=== PATIENT | female | born 1940 | race Caucasian/White ===

== ENCOUNTER → 2017-07-26 | Outpatient (CLI) | payer MEDICARE | END | disposition home or self-care (01) | LOC: KCIC DEXA 11:11 | PROVIDERS: ATTEND Family Medicine ==

== ENCOUNTER → 2017-07-31 | Outpatient (CLI) | payer MEDICARE ==
--- NOTE | 2017-07-31 14:45 | KCIC ---
Indication: Postmenopausal screening for osteoporosis. COMPARISON: None available.. Bone Density: -BMD: (g/cm2) - AP Spine Total (L1-L4).......... 1.011. - Total left Hip................. 0.547. T-Score: - AP Spine Total (L1-L4)......... -0.3. - Total left Hip................. -3.2. Z-Score: - AP Spine Total (L1-L4).......... 2.1. - Total left Hip................. -1.5. World Health Organization criteria for BMD interpretation classify patients as Normal (T-score at or above -1.0), Osteopenic (T-score between -1.0 and -2.5), or Osteoporotic (T-score at or below -2.5). Impression: 1. AP Spine Total L1-L4--- normal. 2. Total left Hip--- osteoporosis.. Electronically signed by: Matthew Eng MD (07/31/2017 2:42 PM) [place] [id number]
== END | disposition home or self-care (01) ==
LOC: KCIC DEXA 13:34
PROVIDERS: ATTEND Family Medicine
DX: Z13.820 Encounter for screening for osteoporosis (principal); M81.0 Age-related osteoporosis without current pathological fracture; Z78.0 Asymptomatic menopausal state
CPT/HCPCS: 77080

== ENCOUNTER → 2017-09-24 | Outpatient (CLI) | payer MEDICARE ==
--- NOTE | 2017-09-24 11:45 | RAD ---
APPROVED REPORT Patient Location: OUT-PATIENT Indications AAA Duplex Results A/PTransverseLongitudinal Proximal Aorta 3.1cm2.1cm Mid Aorta 2.2cm2.6cm Distal Aorta 3.4cm3.5cm Rt. Common Iliac Artery1.3cm Lt. Common Iliac Artery 1.4cm Findings Grayscale images of the abdominal aorta reveals mild diffuse atherosclerotic plaque. There is a 3.5 c m x 3.2 cm fusiform infrarenal aneurysm located at the distal aorta prior to the bifurcation with florecita roximately a 1.4 cm mural thrombus/plaque located on the posterior wall of the aorta prior to the bif urcation.. No obvious dissection is noted. Based on images from August 2016 there is mild enlargement of the aneurysm from 3.4 cm to 3.5 cm in greatest dimension. Critical Notification Critical Value: No <Conclusion> 1. Stable infra renal abdominal aortic aneurysm measuring 3.5 cm with mural thrombus present. Compare d to duplex scan from last year there is minimal increase in the diameter of the aneurysm from 3.4 cm to 3.5 cm.
== END | disposition home or self-care (01) ==
LOC: US 07:30
PROVIDERS: ATTEND Internal Medicine Cardiovascular Disease
DX: I71.4 Abdominal aortic aneurysm, without rupture (principal); I21.9 Acute myocardial infarction, unspecified
CPT/HCPCS: 76770

== ENCOUNTER → 2017-10-31 | Outpatient (CLI) | payer MEDICARE | END | disposition home or self-care (01) | LOC: KCIC 15:16 | DX: M17.0 Bilateral primary osteoarthritis of knee (principal); M25.762 Osteophyte, left knee; M25.761 Osteophyte, right knee; M25.862 Other specified joint disorders, left knee; M25.861 Other specified joint disorders, right knee | CPT/HCPCS: 73562 ==

== ENCOUNTER → 2018-06-18 | Outpatient (CLI) | payer MEDICARE ==
[2018-06-18 15:32] LABS: BASO # 0.1 x10^3/uL (0.0-0.2); BASO % 1 % (0-3); EOS # 0.1 x10^3/uL (0.0-0.7); EOS % 2 % (0-3); HEMATOCRIT 40.1 % (36.0-47.0); HEMOGLOBIN 13.2 g/dL (12.0-15.5); LYMPH # 2.2 x10^3/uL (1.0-4.8); LYMPH % 35 % (24-48); MEAN CORPUSCULAR HEMOGLOBIN 30 pg (25-35); MEAN CORPUSCULAR HGB CONC 33 g/dL (31-37); MEAN CORPUSCULAR VOLUME 90 fL (79-100); MONO # 0.8 x10^3/uL (0.0-1.1); MONO % 13 % (0-9); NEUT % 49 % (31-73); PLATELET COUNT 196 x10^3/uL (140-400); RED BLOOD COUNT 4.45 x10^6/uL (3.50-5.40); RED CELL DISTRIBUTION WIDTH 13.7 % (11.5-14.5); WHITE BLOOD COUNT 6.2 x10^3/uL (4.0-11.0)
[2018-06-18 15:50] LABS: ALBUMIN 3.9 g/dL (3.4-5.0); TOTAL PROTEIN 7.4 g/dL (6.4-8.2)
[2018-06-18 15:51] LABS: ALBUMIN/GLOBULIN RATIO 1.1 (1.0-1.7); CALCIUM 9.3 mg/dL (8.5-10.1); CREATININE 1.2 mg/dL (0.6-1.0); GFR 43.8; POTASSIUM 4.1 mmol/L (3.5-5.1)
== END | disposition home or self-care (01) ==
LOC: LAB 15:07
PROVIDERS: ATTEND Psychiatry & Neurology Neurology
DX: M81.0 Age-related osteoporosis without current pathological fracture (principal); R41.3 Other amnesia; I10 Essential (primary) hypertension
CPT/HCPCS: 36415; 80053; 82306; 82607; 84443; 85025

== ENCOUNTER → 2018-06-26 | Outpatient (CLI) | payer MEDICARE ==
--- NOTE | 2018-06-27 19:48 | EEG ---
DATE OF SERVICE: 06/26/2018 EEG NUMBER: [id number] OBJECTIVE: This is a 77-year-old female patient with history of memory loss and cognitive functional impairment. EEG was requested to evaluate cerebral activity. METHODS: Twenty electrodes were applied according to the international 10-20 electrode placement system. EKG monitoring, hyperventilation, intermittent photic stimulation, monopolar and bipolar montages were routinely utilized. The record was obtained on a digital system with video monitoring. FINDINGS: 1. Background: The patient was recorded in the awake and drowsy states. No actual sleep state was recorded. The overall background amplitude is 5-15 microvolts. A posterior dominant rhythm of 8 Hz is observed. 2. Abnormalities: No specific epileptiform discharge or electrographic seizure is seen. No focal or diffuse slowing. 3. Activation: Hyperventilation was performed with fair efforts and normal response. Intermittent photic stimulation was performed with photic driving. IMPRESSION: This EEG is a normal study for the awake and drowsy states. No actual sleep state was recorded. No focal, lateralizing, specific epileptiform discharge or electrographic seizure is seen. JESSICA ESPINOZA MD DR: SUBHA/maximo JOB#: [id number] / [id number] SHU
== END | disposition home or self-care (01) ==
LOC: RT 09:53
PROVIDERS: ATTEND Psychiatry & Neurology Neurology
DX: G31.84 Mild cognitive impairment of uncertain or unknown etiology (principal); M17.0 Bilateral primary osteoarthritis of knee; I10 Essential (primary) hypertension
CPT/HCPCS: 95816

== ENCOUNTER → 2018-09-09 | Outpatient (CLI) | payer MEDICARE ==
--- NOTE | 2018-09-09 10:46 | RAD ---
MR#: [id number] Date of Study: 09/09/2018 Ordering Physician: MOHIT LIZARRAGA, Referring Physician: MOHIT LIZARRAGA, Tech: Tristan Price MBA, RDMS, RVT, RDCS, RTR APPROVED REPORT Patient Location: OUT-PATIENT Indications AAA Duplex Results A/PTransverseLongitudinal Proximal Aorta 2.0cm1.7cm Mid Aorta 2.7cm1.9cm Distal Aorta 3.6cm3.5cm Doppler VelocityWaveform Distal Aorta 41.0 cm/sec Findings There is a infrarenal abdominal aortic aneurysm measuring approximately 3.67 m with a stable mural th rombus noted. These images are similar to ultrasound dated 09/17/17. The proximal aorta measures 2.0 cm in the mid aorta measures 2.7 cm. The distal infrarenal abdominal aorta measures 3.6 cm. Previous measurements were notable for transverse dimensions of 2.0, 2.6, 3.5. Critical Notification Critical Value: No <Conclusion> Minimally increased infrarenal abdominal aorta is aneurysm at 3.6 cm with known mural thrombus. Signed by : Jude Mullins, Electronically Approved : 09/09/2018 10:45:43
--- NOTE | 2018-09-09 11:23 | CARD ---
MR#: [id number] Date of Study: 09/09/2018 Ordering Physician: MOHIT LIZARRAGA, Referring Physician: MOHIT LIZARRAGA Tech: Antonieta Rodriguez RDCS APPROVED REPORT EXAM: Two-dimensional and M-mode echocardiogram with Doppler and color Doppler. Other Information Quality : GoodHR: 61bpm Rhythm : NSR INDICATION Hypertension/HCVD 2D DIMENSIONS RVDd2.9 (2.9-3.5cm)Left Atrium(2D)3.4 (1.6-4.0cm) IVSd1.7 (0.7-1.1cm)Aortic Root(2D)3.6 (2.0-3.7cm) LVDd3.6 (3.9-5.9cm)LVOT Diameter1.7 (1.8-2.4cm) PWd0.8 (0.7-1.1cm)IVSs1.8 (0.8-1.2cm) LVDs2.1 (2.5-4.0cm)FS (%) 40.5 % PWs1.1 (0.8-1.2cm)SV38.7 ml M-Mode DIMENSIONS Left Atrium(MM)3.45 (2.5-4.0cm)Aortic Root3.64 (2.2-3.7cm) Aortic Valve AoV Peak Isai.152.5cm/sAoV VTI39.4cm AO Peak GR.9.3mmHgLVOT Peak Isai.142.8cm/s LVOT VTI 37.63cmAO Mean GR.6mmHg BO (VMAX)1.68vg3QYS (VTI)2.26cm2 Mitral Valve MV E Momlxewu351.4cm/sMV DECEL INQF118yc MV A Fsimmtat728.2cm/sMV NDW00ds E/A Ratio0.9MVA (PHT)2.26cm2 TDI E/Lateral E'19.9E/Medial E'21.8 Pulmonary Valve PV Peak Iycaozub08.6cm/sPV Peak Grad.4mmHg Tricuspid Valve TR P. Mrvmwrho129ow/sRAP HQPZLYFV6dgGa TR Peak Gr.76daUeVZRF27qzKu Pulmonary Vein S1 Yzybxykq76.2cm/sD2 Mfejdigz65.7cm/s PVa lrfjmgeh781aoao LEFT VENTRICLE The left ventricle is normal size. There is mild to moderate left ventricular hypertrophy. There is m oderate proximal thickening. The left ventricular systolic function is normal and the ejection fracti on is within normal range. The Ejection Fraction is 60-65%. There is normal LV segmental wall motion. Transmitral Doppler flow pattern is Grade II-pseudonormal filling dynamics. RIGHT VENTRICLE The right ventricle is normal size. There is normal right ventricular wall thickness. The right ventr icular systolic function is normal. ATRIA The left atrium size is normal. The right atrium size is normal. The interatrial septum is intact wit h no evidence for an atrial septal defect or patent foramen ovale as noted on 2-D or Doppler imaging. AORTIC VALVE The aortic valve is moderately calcified. The aortic valve is trileaflet. Doppler and Color Flow reve aled no significant aortic regurgitation. There is no significant aortic valvular stenosis. MITRAL VALVE The mitral valve is calcified but opens well. There is no evidence of mitral valve prolapse. There is no mitral valve stenosis. Doppler and Color-flow revealed mild mitral regurgitation. TRICUSPID VALVE The tricuspid valve is normal in structure and function. Doppler and Color Flow revealed mild to mode rate tricuspid regurgitation. The PA pressure was estimated at 32 mmHg. There is no tricuspid valve p rolapse or vegetation. There is no tricuspid valve stenosis. PULMONIC VALVE The pulmonary valve is normal in structure and function. Doppler and Color Flow revealed moderate pul hafsa valvular regurgitation. There is no pulmonic valvular stenosis. GREAT VESSELS The aortic root is mildly enlarged. The ascending aorta is mildly dilated. PERICARDIAL EFFUSION There is no evidence of significant pericardial effusion. Critical Notification Critical Value: No <Conclusion> The left ventricle is normal size. The left ventricular systolic function is normal and the ejection fraction is within normal range. The Ejection Fraction is 60-65%. There is mild to moderate left ventricular hypertrophy. There is moderate proximal thickening. There is no significant aortic valvular stenosis. Doppler and Color Flow revealed no significant aortic regurgitation. Doppler and Color-flow revealed mild mitral regurgitation. Doppler and Color Flow revealed mild to moderate tricuspid regurgitation. The PA pressure was estimated at 32 mmHg. Signed by : Ron Vergara MD Electronically Approved : 09/09/2018 11:22:53
== END | disposition home or self-care (01) ==
LOC: US 11:50
PROVIDERS: ATTEND Internal Medicine Cardiovascular Disease
DX: I71.4 Abdominal aortic aneurysm, without rupture (principal); I08.8 Other rheumatic multiple valve diseases
CPT/HCPCS: 76770; 93306

== ENCOUNTER → 2018-12-19 | Outpatient (CLI) | payer MEDICARE ==
--- NOTE | 2018-12-19 11:17 | KCIC ---
MRI of the brain without contrast 12/19/2018 Clinical History: Memory loss Technique: Unenhanced T1-weighted sagittal and axial, T2-weighted axial and coronal and FLAIR, gradient echo and diffusion-weighted axial images of the brain were obtained. Findings: No previous imaging studies are available for comparison. There is generalized parenchymal atrophy. Patchy and a small scattered areas of increased signal intensity are seen within the periventricular and subcortical white matter of both cerebral hemispheres on the FLAIR and T2-weighted images consistent with areas of mild small vessel ischemic disease. No acute parenchymal abnormality is seen. No extra-axial fluid collection is seen. There is no MRI evidence of acute ischemia/infarction. Mild to moderate mucosal thickening in seen scattered throughout the paranasal sinuses. There is a minimal left mastoid effusion. Small to moderate-sized right mastoid effusion is seen. Normal flow voids are seen within the major vascular structures surrounding the brain parenchyma. Impression: No acute parenchymal abnormality is seen. Electronically signed by: Shaji Barr MD (12/19/2018 11:14 AM) [facility]
== END | disposition home or self-care (01) ==
LOC: KCIC MRI 09:59
PROVIDERS: ATTEND Psychiatry & Neurology Neurology
DX: H74.8X3 Other specified disorders of middle ear and mastoid, bilateral (principal); G31.89 Other specified degenerative diseases of nervous system
CPT/HCPCS: 70551

== ENCOUNTER → 2019-09-12 | Outpatient (CLI) | payer MEDICARE ==
--- NOTE | 2019-09-12 10:56 | CARD ---
MR#: [id number] Date of Study: 09/12/2019 Ordering Physician: MOHIT WASHINGTON, Referring Physician: MOHIT WASHINGTON, Tech: Inés Avelar APPROVED REPORT EXAM: Two-dimensional and M-mode echocardiogram with Doppler and color Doppler. INDICATION Hypertension/HCVD 2D DIMENSIONS Left Atrium(2D)2.8 (1.6-4.0cm)IVSd1.1 (0.7-1.1cm) Aortic Root(2D)3.5 (2.0-3.7cm)LVDd4.0 (3.9-5.9cm) LVOT Diameter2.0 (1.8-2.4cm)PWd0.9 (0.7-1.1cm) LVDs3.0 (2.5-4.0cm)FS (%) 25.8 % SV35.5 mlLVEF(%)51.3 (>50%) Aortic Valve AoV Peak Isai.167.9cm/sAoV VTI40.7cm AO Peak GR.11.3mmHgLVOT Peak Isai.143.5cm/s LVOT VTI 36.65cmAO Mean GR.7mmHg BO (VMAX)2.61xh2NUN (VTI)2.84cm2 Mitral Valve MV E Dbgjxioj93.8cm/sMV DECEL YEEF452qx MV A Augjpsts453.2cm/sMV HRE158ym E/A Ratio0.8MVA (PHT)2.13cm2 TDI E/Lateral E'19.2E/Medial E'29.3 Pulmonary Valve PV Peak Egzkvmwc72.8cm/sPV Peak Grad.4mmHg Tricuspid Valve TR P. Hzxccxvc514dv/sRAP KBKCIBJB0nyGt TR Peak Gr.42diArXMRQ24nzQq Pulmonary Vein S1 Cideylaj26.1cm/sD2 Jjuwjazg33.8cm/s PVa vislpaqc820fkdw LEFT VENTRICLE The left ventricle is normal size. There is borderline to mild concentric left ventricular hypertroph y. The left ventricular systolic function is normal. The Ejection Fraction is 60-65%. There is normal LV segmental wall motion. Transmitral Doppler flow pattern is Grade I-abnormal relaxation pattern. RIGHT VENTRICLE The right ventricle is normal size. There is normal right ventricular wall thickness. The right ventr icular systolic function is normal. ATRIA The left atrium is borderline dilated. The right atrium size is normal. The interatrial septum is int act with no evidence for an atrial septal defect or patent foramen ovale as noted on 2-D or Doppler i maging. AORTIC VALVE The aortic valve is normal in structure and function. Doppler and Color Flow revealed no significant aortic regurgitation. There is no significant aortic valvular stenosis. MITRAL VALVE Mitral annular calcification is mild to moderate. There is no evidence of mitral valve prolapse. Ther e is no mitral valve stenosis. Doppler and Color-flow revealed trace mitral regurgitation. TRICUSPID VALVE The tricuspid valve is normal in structure and function. Doppler and Color Flow revealed mild tricusp id regurgitation with an estimated PAP of 40 mmHg. There is no tricuspid valve prolapse or vegetation . There is no tricuspid valve stenosis. PULMONIC VALVE The pulmonic valve is not well visualized. Doppler and Color Flow revealed mild to moderate pulmonic valvular regurgitation. GREAT VESSELS The aortic root is mildly enlarged. The IVC is normal in size and collapses >50% with inspiration. PERICARDIAL EFFUSION There is no evidence of significant pericardial effusion. Critical Notification Critical Value: No <Conclusion> The left ventricular systolic function is normal. The Ejection Fraction is 60-65%. There is normal LV segmental wall motion. Transmitral Doppler flow pattern is Grade I-abnormal relaxation pattern. Trace mitral regurgitation. Mild tricuspid regurgitation with an estimated PAP of 40 mmHg. There is no evidence of significant pericardial effusion. Signed by : Mohit Washington, Electronically Approved : 09/12/2019 10:56:26
--- NOTE | 2019-09-15 07:43 | RAD ---
MR#: [id number] Date of Study: 09/12/2019 Ordering Physician: MOHIT LIZARRAGA, Referring Physician: MOHIT LIZARRAGA Tech: Inés Allen RDMS, JASVIR, RTR APPROVED REPORT Patient Location: OUT-PATIENT Indications AAA Duplex Results A/PTransverseLongitudinal Proximal Aorta 2.5cm2.3cm2cm Mid Aorta 2.3cm2.4cm2.2cm Distal Aorta 3.4cm2.9cm3cm Rt. Common Iliac Artery1.1cm Lt. Common Iliac Artery 1.3cm Doppler VelocityWaveform Proximal Aorta 46.9 cm/secBiphasic Aorta Mid. 58.1 cm/secBiphasic Distal Aorta 41.4 cm/secBiphasic Rt. Common Iliac Rjbibe199.2 cm/secMonophasic Lt. Common Iliac Artery 223.6 cm/secMonophasic Findings Grayscale images of the abdominal aorta demonstrates mild diffuse intimal hyperplasia. The distal abd ominal aorta has an aneurysm measuring approximately 3.5 cm with a 50% obstructive plaque without sig nificant calcification suggestive of soft plaque. The bilateral common iliac velocities are elevated again suggestive of greater than 50% stenosis at t he aortic bifurcation. Critical Notification Critical Value: No <Conclusion> 1. Small distal abdominal aortic aneurysm with 50% noncalcified plaque noted 2. 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 Signed by : Jude Mullins, Electronically Approved : 09/15/2019 07:42:51
== END | disposition home or self-care (01) ==
LOC: ECHO 08:19
PROVIDERS: ATTEND Internal Medicine Cardiovascular Disease
DX: I08.8 Other rheumatic multiple valve diseases (principal); I11.9 Hypertensive heart disease without heart failure
CPT/HCPCS: 76770; 93306

== ENCOUNTER 2020-04-13 00:35 | Inpatient (IN) | payer MEDICARE ==
[2020-04-13] VITALS (11 sets, daily range): BP systolic 111–188; BP diastolic 46–83
[~2020-04-13] VITALS: Ht 160 cm; Wt 74.8 kg
--- NOTE | 2020-04-13 01:01 | RAD ---
EXAM: LEFT WRIST 3 VIEWS. HISTORY: Fall, left wrist pain. COMPARISON: None. FINDINGS: There is a mildly comminuted transverse fracture of the distal radial metaphysis with 30 degrees dorsal inclination of the distal radial articular surface. No clear intra-articular extension is seen. There is no ulnar styloid fracture. The scapholunate interval is not fully profiled but appears widened at 4 mm. The scapholunate angle is increased. First carpometacarpal osteoarthritis is severe. 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 Soft tissue swelling is noted. IMPRESSION: 1. Dorsally angulated fracture of the distal radius. 2. Findings consistent with scapholunate ligament disruption and dorsal intercalated segmental instability. Electronically signed by: Aren Lo MD (04/13/2020 12:58 AM) [facility]
--- NOTE | 2020-04-13 01:08 | PHYS DOC ---
Past Medical History Past Medical History: High Cholesterol, Hypertension Past Surgical History: Tonsillectomy Smoking Status: Never Smoker Alcohol Use: None General Adult EDM: Chief Complaint: MECHANICAL FALL HPI: HPI: Patient is a 79 year old female who presents with complaint of left wrist injury after falling at home. Patient indicates that she went to kick a ball that her dog was playing with and she slipped and fell backwards landing on outstretched left hand. Patient reports pain is an 6 out of 10. [] Review of Systems: Review of Systems: Constitutional: Denies fever or chills. [] Eyes: Denies change in visual acuity. [] HENT: Denies nasal congestion or sore throat. [] Respiratory: Denies cough or shortness of breath. [] Cardiovascular: Denies chest pain or edema. [] GI: Denies abdominal pain, nausea, vomiting, bloody stools or diarrhea. [] : Denies dysuria. [] Musculoskeletal: Denies back pain or joint pain. [] Integument: Denies rash. [] Neurologic: Denies headache, focal weakness or sensory changes. [] Endocrine: Denies polyuria or polydipsia. [] Lymphatic: Denies swollen glands. [] Psychiatric: Denies depression or anxiety. [] Heart Score: Risk Factors: Risk Factors: DM, Current or recent (<one month) smoker, HTN, HLP, family history of CAD, obesity. Risk Scores: Score 0 - 3: 2.5% MACE over next 6 weeks - Discharge Home Score 4 - 6: 20.3% MACE over next 6 weeks - Admit for Clinical Observation Score 7 - 10: 72.7% MACE over next 6 weeks - Early Invasive Strategies Allergies: Allergies: Allergies Coded Allergies Type Severity Reaction Last Updated Verified No Known Drug Allergies 04/13/20 No Physical Exam: PE: Constitutional: Well developed, well nourished, no acute distress, non-toxic appearance. [] HENT: Normocephalic, atraumatic, bilateral external ears normal, oropharynx moist, no oral exudates, nose normal. [] Eyes: PERRLA, EOMI, conjunctiva normal, no discharge. [] Neck: Normal range of motion, no tenderness, supple, no stridor. [] Cardiovascular:Heart rate regular rhythm, no murmur [] Lungs & Thorax: Bilateral breath sounds clear to auscultation [] Abdomen: Bowel sounds normal, soft, no tenderness, no masses, no pulsatile masses. [] Skin: Warm, dry, no erythema, no rash. [] Back: No tenderness, no CVA tenderness. [] Extremities: No tenderness, no cyanosis, no clubbing, ROM intact, no edema. [] Neurologic: Alert and oriented X 3, normal motor function, normal sensory function, no focal deficits noted. [] Psychologic: Affect normal, judgement normal, mood normal. [] Current Patient Data: Vital Signs: Vital Signs Date Time Temp Pulse Resp B/P (MAP) Pulse Ox O2 Delivery O2 Flow Rate FiO2 04/13/20 00:43 98.6 67 19 198/91 (126) 94 Room Air 98.6 EKG: EKG: [] Radiology/Procedures: Radiology/Procedures: [] Impression: PROCEDURE: WRIST 3V LEFT EXAM: LEFT WRIST 3 VIEWS. HISTORY: Fall, left wrist pain. COMPARISON: None. FINDINGS: There is a mildly comminuted transverse fracture of the distal radial metaphysis with 30 degrees dorsal inclination of the distal radial articular surface. No clear intra-articular extension is seen. There is no ulnar styloid fracture. The scapholunate interval is not fully profiled but appears widened at 4 mm. The scapholunate angle is increased. First carpometacarpal osteoarthritis is severe. 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 Soft tissue swelling is noted. IMPRESSION: 1. Dorsally angulated fracture of the distal radius. 2. Findings consistent with scapholunate ligament disruption and dorsal intercalated segmental instability. Electronically signed by: Aren Lo MD (04/13/2020 12:58 AM) [facility] Course & Med Decision Making: Course & Med Decision Making Pertinent Labs and Imaging studies reviewed. (See chart for details) [] Dragon Disclaimer: Dragon Disclaimer: This electronic medical record was generated, in whole or in part, using a voice recognition dictation system. Departure Departure Impression: Primary Impression: Wrist fracture, left Qualified Codes: S62.102A - Fracture of unspecified carpal bone, left wrist, initial encounter for closed fracture Additional Impression: Intractable pain Disposition: ADMITTED INPATIENT Admitting Physician: [facility] Condition: IMPROVED Referrals: DI LEAL MD (PCP) Justicifation of Admission Dx: Justifications for Admission: Justification of Admission Dx: Comment: (Left wrist fracture with intractable pain) STONE MICHAEL Jr. DO Apr 13, 2020 01:08
[2020-04-13] MEDS ORDERED: fentaNYL PF VIAL 100 MCG/2 ML VIAL IVP ONE ×2 (01:30→02:00)
[2020-04-13] MEDS ORDERED: ONDANSETRON PF 4 MG/2 ML VIAL. IVP ONE (01:30)
[2020-04-13 02:26] LABS: BASO # 0.1 x10^3/uL (0.0-0.2); BASO % 1 % (0-3); EOS % 1 % (0-3); HEMOGLOBIN 13.1 g/dL (12.0-15.5); LYMPH % 10 % (24-48); MEAN CORPUSCULAR HEMOGLOBIN 30 pg (25-35); MEAN CORPUSCULAR HGB CONC 34 g/dL (31-37); MEAN CORPUSCULAR VOLUME 90 fL (79-100); MONO % 11 % (0-9); NEUT # 7.9 x10^3/uL (1.8-7.7); NEUT % 78 % (31-73); PLATELET COUNT 171 x10^3/uL (140-400); RED BLOOD COUNT 4.34 x10^6/uL (3.50-5.40); RED CELL DISTRIBUTION WIDTH 13.9 % (11.5-14.5)
[2020-04-13 02:34] LABS: CALCIUM 9.6 mg/dL (8.5-10.1); CREATININE 1.4 mg/dL (0.6-1.0); GFR 36.5; POTASSIUM 3.4 mmol/L (3.5-5.1)
[2020-04-13 02:40] LABS: ALBUMIN 3.7 g/dL (3.4-5.0); ALBUMIN/GLOBULIN RATIO 1.2 (1.0-1.7); TOTAL BILIRUBIN 0.8 mg/dL (0.2-1.0); TOTAL PROTEIN 6.9 g/dL (6.4-8.2)
[2020-04-13] MEDS ORDERED: ONDANSETRON PF 4 MG/2 ML VIAL. IV PRN ×2 (03:00→13:45)
[2020-04-13] MEDS: IV NORMAL SALINE 1000ML BAG 1,000 ML IV SCH ×4 (03:03→22:45)
[2020-04-13] MEDS ORDERED: HYDR-2145 PO (04:01)
[2020-04-13] MEDS ORDERED: DONE10TA7 PO (04:01)
[2020-04-13] MEDS ORDERED: ALEN70TA6 PO (04:01)
[2020-04-13] MEDS ORDERED: ATOR40TA59 PO (04:01)
[2020-04-13] MEDS ORDERED: METO-239 PO (04:01)
[2020-04-13] MEDS ORDERED: LOSA100T14 PO (04:01)
--- NOTE | 2020-04-13 04:03 | NUR ---
The patient, ZIA MELARA, 79 y/o, F admitted by FORTUNATO TOLBERT MD, was given written information regarding hospital policies, unit procedures and contact persons. Valuables were checked and left with her.
--- NOTE | 2020-04-13 07:10 | EKG ---
[facility] [address] [place] [address] Test Date: 2020-04-13 Test Time: 00:57:29 Pat Name: ZIA MELARA Department: Room: 412 1 Gender: F [employer] Cuisine: : 1940 Requested By: FORTUNATO TOLBERT Order Number: [id number] Reading MD: Jude Mullins MD Measurements Intervals [place] Rate: 63 P: 9 OK: 172 QRS: -2 QRSD: 74 T: 41 QT: 394 QTc: 406 Interpretive Statements SINUS RHYTHM CONSISTENT WITH ANTEROSEPTAL INFARCT PROBABLY OLD ABNORMAL ECG Electronically Signed On 04-13-2020 9:49:47 CDT by Jude Mullins MD
--- NOTE | 2020-04-13 07:52 | NUR ---
Covid swab taken & taken to lab
--- NOTE | 2020-04-13 07:55 | NUR ---
Family members at bedside, notified of impending surgery, given clear liquid diet per MD order
[2020-04-13] MEDS: fentaNYL PF VIAL 100 MCG/2 ML VIAL IV PRN ×4 (08:35→19:06)
--- NOTE | 2020-04-13 09:30 | PDOC1 ---
History and Physical Date of Admission Date of Admission DATE: 04/13/20 TIME: 09:27 Identification/Chief Complaint Chief Complaint SEEN IN ER WITH SEVERE PAIN AFTER WRIST [id number] year old female who presents with complaint of left wrist injury after falling at home. Patient indicates that she went to kick a ball that her dog was playing with and she slipped and fell backwards landing on outstretched left hand. Patient reports pain is an 6 out of 10. [] NOW IN SPLINT, ELEVATED, PAIN NOT WELL CONTROLLED Past Medical History Past Medical History Past Medical History Past Medical History: High Cholesterol, Hypertension Past Surgical History: Tonsillectomy Smoking Status: Never Smoker Alcohol Use: None fhx HTN Cardiovascular: HTN Family History Family History: High Cholestrol, Hypertension Social History Smoke: No ALCOHOL: none Drugs: None Current Problem List Problem List Problems Medical Problems: (1) Wrist fracture, left Status: Acute Current Medications Current Medications Current Medications Fentanyl Citrate (Fentanyl 2ml Vial) 50 mcg 1X ONCE IVP Last administered on 04/13/20at 01:23; Start 04/13/20 at 01:30; Stop 04/13/20 at 01:31; Status DC Ondansetron HCl (Zofran) 4 mg 1X ONCE IVP Last administered on 04/13/20at 01:31; Start 04/13/20 at 01:30; Stop 04/13/20 at 01:31; Status DC Fentanyl Citrate (Fentanyl 2ml Vial) 50 mcg 1X ONCE IVP Last administered on 04/13/20at 01:53; Start 04/13/20 at 02:00; Stop 04/13/20 at 02:01; Status DC Ondansetron HCl (Zofran) 4 mg PRN Q8HRS PRN IV NAUSEA/VOMITING; Start 04/13/20 at 03:00; Stop 04/14/20 at 02:59 Fentanyl Citrate (Fentanyl 2ml Vial) 25 mcg PRN Q1HR PRN IV PAIN Last administered on 04/13/20at 08:35; Start 04/13/20 at 03:00; Stop 04/14/20 at 02:59 Sodium Chloride 1,000 ml @ 75 mls/hr [id number] IV Last administered on 04/13/20at 03:03; Start 04/13/20 at 03:00; Stop 04/14/20 at 02:59 Active Scripts Active Reported Alendronate Sodium 70 Mg Tablet 70 Mg PO WEEKLY Losartan Potassium 100 Mg Tablet 100 Mg PO DAILY Atorvastatin Calcium 40 Mg Tablet 40 Mg PO HS Donepezil Hcl 10 Mg Tablet 20 Mg PO HS Metoprolol Succinate ( Xl ) (Metoprolol Succinate) 25 Mg Tab.er.24h 50 Mg PO DAILY Hydrochlorothiazide Tablet (Hydrochlorothiazide) 25 Mg Tablet 25 Mg PO DAILY Allergies Allergies: Coded Allergies: No Known Drug Allergies (Unverified , 04/13/20) ROS Review of System Review of Systems: Review of Systems: Constitutional: Denies fever or chills. [] Eyes: Denies change in visual acuity. [] HENT: Denies nasal congestion or sore throat. [] Respiratory: Denies cough or shortness of breath. [] Cardiovascular: Denies chest pain or edema. [] GI: Denies abdominal pain, nausea, vomiting, bloody stools or diarrhea. [] : Denies dysuria. [] Musculoskeletal: Denies back pain or joint pain. [] Integument: Denies rash. [] Neurologic: Denies headache, focal weakness or sensory changes. [] Endocrine: Denies polyuria or polydipsia. [] Lymphatic: Denies swollen glands. [] Psychiatric: Denies depression or anxiety. [] 14 PT ROS OTHERWISE NEG PSYCHOLOGICAL ROS: YES: Anxiety; No: Behavioral Disorder, Concentration difficultie, Decreased libido, Depression, Disorientation, Hallucinations, Hostility, Irritablity, Memory difficulties, Mood Swings, Obsessive thoughts, Physical abuse, Sexual abuse, Sleep disturbances, Suicidal ideation, Other Eyes: No Blurry vision, No Decreased vision, No Double vision, No Dry eyes, No Excessive tearing, No Eye Pain, No Itchy Eyes, No Loss of vision, No Photophobia, No Scotomata, No Uses contacts, No Uses glasses, No Other ALLERGY AND IMMUNOLOGY: No: Hives, Insect Bite Sensitivity, Itchy/Watery Eyes, Nasal Congestion, Post Nasal Drip, Seasonal Allergies, Other Hematological and Lymphatic: No: Bleeding Problems, Blood Clots, Blood Transfusions, Brusing, Night Sweats, Pallor, Swollen Lymph Nodes, Other Respiratory: No: Cough, Hemoptysis, Orthopnea, Pleuritic Pain, Shortness of breath, SOB with excertion, Sputum Changes, Stridor, Tachypnea, Wheezing, Other Cardiovascular: No Chest Pain, No Palpitations, No Orthopnea, No Paroxysmal Noc. Dyspnea, No Edema, No Lt Headedness, No Other Gastrointestinal: No Nausea, No Vomiting, No Abdominal Pain, No Diarrhea, No Constipation, No Melena, No Hematochezia, No Other Musculoskeletal: Yes Gait Disturbance, Yes Joint Pain, Yes Joint Stiffness, Yes Joint Swelling Neurological: Yes Gait Disturbance Physical Exam Physical Exam Physical Exam: PE: Constitutional: Well developed, well nourished, MODERATE acute distress, non- toxic appearance. [] HENT: Normocephalic, atraumatic, bilateral external ears normal, oropharynx moist, no oral exudates, nose normal. [] Eyes: PERRLA, EOMI, conjunctiva normal, no discharge. [] Neck: Normal range of motion, no tenderness, supple, no stridor. [] Cardiovascular:Heart rate regular rhythm, no murmur [] Lungs & Thorax: Bilateral breath sounds clear to auscultation [] Abdomen: Bowel sounds normal, soft, no tenderness, no masses, no pulsatile masses. [] Skin: Warm, dry, no erythema, no rash. [] Back: No tenderness, no CVA tenderness. [] Extremities: No tenderness, no cyanosis, no clubbing, ROM intact, no edema. [] Neurologic: Alert and oriented X 3, normal motor function, normal sensory function, no focal deficits noted. [] Psychologic: Affect normal, judgement normal, mood normal. [] General: Alert, Oriented X3, Cooperative, moderate distress HEENT: Atraumatic, PERRLA, EOMI, Mucous membr. moist/pink Lungs: Clear to auscultation, Normal air movement Heart: RRR, no thrills, no gallops Breasts: Not examined Abdomen: Normal bowel sounds, Soft Rectal Exam: not examined PELVIC: Examination not indicated Extremities: No cyanosis, No edema Neuro: Normal speech, Cranial nerves 3-12 NL Psych/Mental Status: Mental status NL, Mood NL Vitals Vitals Vital Signs Date Time Temp Pulse Resp B/P (MAP) Pulse Ox O2 Delivery O2 Flow Rate FiO2 04/13/20 08:35 Room Air 04/13/20 07:15 98.0 97 18 168/78 (108) 95 98.0 Labs Labs Laboratory Tests Test 6/16/20 02:15 White Blood Count 10.0 x10^3/uL (4.0-11.0) Red Blood Count 4.34 x10^6/uL (3.50-5.40) Hemoglobin 13.1 g/dL (12.0-15.5) Hematocrit 39.0 % (36.0-47.0) Mean Corpuscular Volume 90 fL (79-100) Mean Corpuscular Hemoglobin 30 pg (25-35) Mean Corpuscular Hemoglobin Concent 34 g/dL (31-37) Red Cell Distribution Width 13.9 % (11.5-14.5) Platelet Count 171 x10^3/uL (140-400) Neutrophils (%) (Auto) 78 % (31-73) Lymphocytes (%) (Auto) 10 % (24-48) Monocytes (%) (Auto) 11 % (0-9) Eosinophils (%) (Auto) 1 % (0-3) Basophils (%) (Auto) 1 % (0-3) Neutrophils # (Auto) 7.9 x10^3/uL (1.8-7.7) Lymphocytes # (Auto) 1.0 x10^3/uL (1.0-4.8) Monocytes # (Auto) 1.0 x10^3/uL (0.0-1.1) Eosinophils # (Auto) 0.0 x10^3/uL (0.0-0.7) Basophils # (Auto) 0.1 x10^3/uL (0.0-0.2) Sodium Level 141 mmol/L (136-145) Potassium Level 3.4 mmol/L (3.5-5.1) Chloride Level 102 mmol/L (98-107) Carbon Dioxide Level 28 mmol/L (21-32) Anion Gap 11 (6-14) Blood Urea Nitrogen 28 mg/dL (7-20) Creatinine 1.4 mg/dL (0.6-1.0) Estimated GFR (Cockcroft-Gault) 36.5 BUN/Creatinine Ratio 20 (6-20) Glucose Level 101 mg/dL (70-99) Calcium Level 9.6 mg/dL (8.5-10.1) Total Bilirubin 0.8 mg/dL (0.2-1.0) Aspartate Amino Transf (AST/SGOT) 23 U/L (15-37) Alanine Aminotransferase (ALT/SGPT) 19 U/L (14-59) Alkaline Phosphatase 54 U/L (46-116) Total Protein 6.9 g/dL (6.4-8.2) Albumin 3.7 g/dL (3.4-5.0) Albumin/Globulin Ratio 1.2 (1.0-1.7) Laboratory Tests Test 04/13/20 02:15 White Blood Count 10.0 x10^3/uL (4.0-11.0) Red Blood Count 4.34 x10^6/uL (3.50-5.40) Hemoglobin 13.1 g/dL (12.0-15.5) Hematocrit 39.0 % (36.0-47.0) Mean Corpuscular Volume 90 fL (79-100) Mean Corpuscular Hemoglobin 30 pg (25-35) Mean Corpuscular Hemoglobin Concent 34 g/dL (31-37) Red Cell Distribution Width 13.9 % (11.5-14.5) Platelet Count 171 x10^3/uL (140-400) Neutrophils (%) (Auto) 78 % (31-73) Lymphocytes (%) (Auto) 10 % (24-48) Monocytes (%) (Auto) 11 % (0-9) Eosinophils (%) (Auto) 1 % (0-3) Basophils (%) (Auto) 1 % (0-3) Neutrophils # (Auto) 7.9 x10^3/uL (1.8-7.7) Lymphocytes # (Auto) 1.0 x10^3/uL (1.0-4.8) Monocytes # (Auto) 1.0 x10^3/uL (0.0-1.1) Eosinophils # (Auto) 0.0 x10^3/uL (0.0-0.7) Basophils # (Auto) 0.1 x10^3/uL (0.0-0.2) Sodium Level 141 mmol/L (136-145) Potassium Level 3.4 mmol/L (3.5-5.1) Chloride Level 102 mmol/L (98-107) Carbon Dioxide Level 28 mmol/L (21-32) Anion Gap 11 (6-14) Blood Urea Nitrogen 28 mg/dL (7-20) Creatinine 1.4 mg/dL (0.6-1.0) Estimated GFR (Cockcroft-Gault) 36.5 BUN/Creatinine Ratio 20 (6-20) Glucose Level 101 mg/dL (70-99) Calcium Level 9.6 mg/dL (8.5-10.1) Total Bilirubin 0.8 mg/dL (0.2-1.0) Aspartate Amino Transf (AST/SGOT) 23 U/L (15-37) Alanine Aminotransferase (ALT/SGPT) 19 U/L (14-59) Alkaline Phosphatase 54 U/L (46-116) Total Protein 6.9 g/dL (6.4-8.2) Albumin 3.7 g/dL (3.4-5.0) Albumin/Globulin Ratio 1.2 (1.0-1.7) Images Images EXAM: LEFT WRIST 3 VIEWS. HISTORY: Fall, left wrist pain. COMPARISON: None. FINDINGS: There is a mildly comminuted transverse fracture of the distal radial metaphysis with 30 degrees dorsal inclination of the distal radial articular surface. No clear intra-articular extension is seen. There is no ulnar styloid fracture. The scapholunate interval is not fully profiled but appears widened at 4 mm. The scapholunate angle is increased. First carpometacarpal osteoarthritis is severe. 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 Soft tissue swelling is noted. IMPRESSION: 1. Dorsally angulated fracture of the distal radius. 2. Findings consistent with scapholunate ligament disruption and dorsal intercalated segmental instability. Electronically signed by: Aren Lo MD (04/13/2020 12:58 AM) [facility] DICTATED and SIGNED BY: MARIANA LO MD DATE: 04/13/20 0058 VTE Prophylaxis Ordered VTE Prophylaxis Devices: Yes VTE Pharmacological Prophylaxi: Contraindicated Assessment/Plan Assessment/Plan IMPRESSION: 1. MECHANICAL FALL 2. Dorsally angulated fracture of the distal radius. 3. Findings consistent with scapholunate ligament disruption and dorsal intercalated segmental instability. 4. Gait instability, high fall risk 5. HYPERTENSION PLAN ADMIT PAIN CONTROL ORTHO CONSULT NPO IV PAIN CONTROL IV FLUID SUPPORT SCD'S DVT PROPHYLAXIS HOME MEDS D/W RN Justicifation of Admission Dx: Justifications for Admission: Justification of Admission Dx: Yes Comments: WRIST FRACTURE WITH INTRACTABLE PAIN, GAIT INSTABILITY, HIGH FALL RISK FORTUNATO TOLBERT MD Apr 13, 2020 09:30
--- NOTE | 2020-04-13 10:20 | NUR ---
SW following. Discussed with RN, pt from home alone. Pt swabbed for COVID-19 for surgery prep. RN advised pt has family support. SW will continue to follow.
[2020-04-13] MEDS ORDERED: fentaNYL PF VIAL 100 MCG/2 ML VIAL IVP PRN (10:30)
[2020-04-13] MEDS ORDERED: hydrALAZINE 20 MG/ML VIAL. IVP PRN (10:45)
[2020-04-13] MEDS ORDERED: fentaNYL PF VIAL 100 MCG/2 ML VIAL IV PRN (11:30)
[2020-04-13] MEDS ORDERED: IV RINGERS,LACTATED 1000ML 1,000 ML IV SCH (11:30)
[2020-04-13] MEDS ORDERED: MORPHINE SULFATE 2 MG/ML VIAL. IV PRN (11:30)
[2020-04-13] MEDS ORDERED: HYDROmorphone 2 MG/ML VIAL IV PRN ×2 (11:30→13:00)
[2020-04-13] MEDS ORDERED: LIDOCAINE 1% PF 2 ML VIAL. ID PRN (11:30)
[2020-04-13] MEDS ORDERED: PROCHLORPERAZINE 10 MG/2 ML VIAL. IV PRN (11:30)
--- NOTE | 2020-04-13 12:58 | NUR ---
Patient complained of splint cutting into arm just above elbow. I had Dr. Dunne look at it and he didn't want me to do anything at the time. Patient continued to complain about it being painful, so I placed call into Dr. Vazquez's office and spoke with his clinical medical transcriptionist who stated would text Dr. Vazquez about patient. I received a call back from Dr. Vazquez stating I could loosen or remove splint as necessary to make patient more comfortable, he also put order in chart for this intervention. I then removed tiffany wrap and splint and broke splint down to just cover the forearm and rewrapped it with the tiffany bandage. I gave a 50mcg dose of Fentanyl before this intervention. When reassessing patient's level of pain, she stated that the pain is still severe to her. I placed call into Dr. Dunne about changing pain medication. Dr. Dunne came up to unit and gave verbal orders for Dilaudid 0.5-0.75 mg q 3 hours. Will enter order and give medication when available and continue to monitor patient for changes.
[2020-04-13] MEDS ORDERED: MAG HYDROX/ALUMINUM HYD/SIMETH 30 ML ORAL.SUSP PO PRN (13:45)
[2020-04-13] MEDS ORDERED: ACETAMINOPHEN 325 MG TABLET. PO PRN (13:45)
[2020-04-13] MEDS ORDERED: LORazepam 0.5 MG TABLET PO PRN (13:45)
[2020-04-13] MEDS ORDERED: ALBUTEROL SULFATE 2.5 MG/3 ML NEBU. NEB PRN (13:45)
[2020-04-13] MEDS ORDERED: cloNIDine HCL 0.1 MG TABLET PO PRN (13:45)
[2020-04-13] MEDS ORDERED: POTASSIUM CHLORIDE 20 MEQ TABLET.ER. PO ONE ×2 (13:45→20:00)
[2020-04-13] MEDS ORDERED: DOCUSATE SODIUM 100 MG CAPSULE. PO PRN (13:45)
[2020-04-13] MEDS ORDERED: guaiFENesin ORAL 200 MG/10 ML LIQUID. PO PRN (13:45)
[2020-04-13] MEDS ORDERED: 0.9 % SODIUM CHLORIDE 10 ML DISP.SYRIN. IV PRN (13:45)
[2020-04-13] MEDS: hydroCHLOROthiazide 25 MG TABLET PO SCH (14:00)
[2020-04-13] MEDS: LOSARTAN POTASSIUM 50 MG TABLET. PO SCH (14:00)
[2020-04-13] MEDS: METOPROLOL SUCC 24HR ER 25 MG TAB.ER.24H. PO SCH (14:00)
[2020-04-13] MEDS ORDERED: ENOXAPARIN 40 MG/0.4 ML SYRINGE. SQ SCH (14:00)
[2020-04-13] MEDS ORDERED: BUPIVACAINE-EPI 0.25%-1:200000 MPF 30 ML VIAL. ONE (16:50)
--- NOTE | 2020-04-13 17:31 | PDOC2 ---
CONSULT Date of Consult Date of Consult DATE: 04/13/20 TIME: 17:28 Reason for Consult Reason for Consult: Left distal radius fracture Identification/Chief Complaint Chief Complaint Left wrist pain and deformity after a fall, Source Source: Chart review, Patient History of Present Illness Reason for Visit: This 79-year-old right-handed woman lives alone and still drives. She was in her kitchen last night about midnight when she simply tripped and fell. She denies striking her head. She thinks she likely fell onto an outstretched hand. There was deformity of the wrist. She was admitted to the hospital. She is here with her adult children who also gave some of the history. She is quite lucid and has no apparent dementia. Past Medical History Past Medical History She reports minimal medical history, although there was mention of an aortic aneurysm being treated with medication only. She sees Dr. Lopez. Cardiovascular: HTN Past Surgical History Past Surgical History Tonsils removed remotely Past Surgical History: Tonsillectomy Family History Family History: High Cholestrol, Hypertension Social History No ALCOHOL: none Drugs: None Lives: Alone Current Problem List Problem List Problems Medical Problems: (1) Wrist fracture, left Status: Acute Current Medications Current Medications Current Medications Fentanyl Citrate (Fentanyl 2ml Vial) 50 mcg 1X ONCE IVP Last administered on 04/13/20at 01:23; Start 04/13/20 at 01:30; Stop 04/13/20 at 01:31; Status DC Ondansetron HCl (Zofran) 4 mg 1X ONCE IVP Last administered on 04/13/20at 01:31; Start 04/13/20 at 01:30; Stop 04/13/20 at 01:31; Status DC Fentanyl Citrate (Fentanyl 2ml Vial) 50 mcg 1X ONCE IVP Last administered on 04/13/20at 01:53; Start 04/13/20 at 02:00; Stop 04/13/20 at 02:01; Status DC Ondansetron HCl (Zofran) 4 mg PRN Q8HRS PRN IV NAUSEA/VOMITING; Start 04/13/20 at 03:00; Stop 04/14/20 at 02:59 Fentanyl Citrate (Fentanyl 2ml Vial) 25 mcg PRN Q1HR PRN IV PAIN Last administered on 04/13/20at 10:03; Start 04/13/20 at 03:00; Stop 04/13/20 at 10:30; Status DC Sodium Chloride 1,000 ml @ 75 mls/hr [id number] IV Last administered on 04/13/20at 03:03; Start 04/13/20 at 03:00; Stop 04/14/20 at 02:59 Fentanyl Citrate (Fentanyl 2ml Vial) 50 mcg PRN Q2HR PRN IVP PAIN Last administered on 04/13/20at 11:26; Start 04/13/20 at 10:30 Hydralazine HCl (Apresoline Inj) 10 mg PRN Q4HRS PRN IVP ELEVATED BP, SEE COMMENTS Last administered on 04/13/20at 11:27; Start 04/13/20 at 10:45 Cefazolin Sodium/ Dextrose 50 ml @ 100 mls/hr 1X PREOP PRN IV SEE COMMENTS; Start 04/13/20 at 11:15 Fentanyl Citrate (Fentanyl 2ml Vial) 25 mcg PRN Q5MIN PRN IV MILD PAIN 1-3; Start 04/13/20 at 11:30; Stop 04/14/20 at 11:29 Fentanyl Citrate (Fentanyl 2ml Vial) 50 mcg PRN Q5MIN PRN IV MODERATE TO SEVERE PAIN; Start 04/13/20 at 11:30; Stop 04/14/20 at 11:29 Morphine Sulfate (Morphine Sulfate) 1 mg PRN Q10MIN PRN IV SEVERE PAIN 7-10; Start 04/13/20 at 11:30; Stop 04/14/20 at 11:29 Ringer's Solution 1,000 ml @ 30 mls/hr Q24H IV ; Start 04/13/20 at 11:30; Stop 04/13/20 at 23:29 Lidocaine HCl (Xylocaine-Mpf 1% 2ml Vial) 2 ml PRN 1X PRN ID PRIOR TO IV START; Start 04/13/20 at 11:30; Stop 04/14/20 at 11:29 Hydromorphone HCl (Dilaudid) 0.5 mg PRN Q10MIN PRN IV SEV PAIN, Second choice Last administered on 04/13/20at 13:07; Start 04/13/20 at 11:30; Stop 04/14/20 at 11:29 Prochlorperazine Edisylate (Compazine) 5 mg PACU PRN PRN IV NAUSEA, MRX1; Start 04/13/20 at 11:30; Stop 04/14/20 at 11:29 Hydromorphone HCl (Dilaudid) 0.5 mg PRN Q3HRS PRN IV PAIN Last administered on 04/13/20at 16:03; Start 04/13/20 at 13:00 Potassium Chloride (Klor-Con) 20 meq 1X ONCE PO ; Start 04/13/20 at 13:45; Stop 04/13/20 at 13:46; Status DC Potassium Chloride (Klor-Con) 20 meq DAILYWBKFT PO ; Start 04/14/20 at 08:00; Stop 04/13/20 at 14:07; Status DC Atorvastatin Calcium (Lipitor) 40 mg HS PO ; Start 04/13/20 at 21:00 Donepezil HCl (Aricept) 20 mg HS PO ; Start 04/13/20 at 21:00 Hydrochlorothiazide (Hydrodiuril) 25 mg DAILY PO ; Start 04/13/20 at 14:00 Metoprolol Succinate (Toprol Xl) 50 mg DAILY PO ; Start 04/13/20 at 14:00 Non-Formulary Medication (Alendronate Sodium ) 70 mg WEEKLY PO ; Start 04/20/20 at 09:00; Status UNV Losartan Potassium (Cozaar) 100 mg DAILY PO ; Start 04/13/20 at 14:00 Sodium Chloride (Normal Saline Flush) 3 ml QSHIFT PRN IV AFTER MEDS AND BLOOD DRAWS; Start 04/13/20 at 13:45 Sodium Chloride 1,000 ml @ 80 mls/hr [id number] IV Last administered on 04/13/20at 15:41; Start 04/13/20 at 13:33 Ondansetron HCl (Zofran) 4 mg PRN Q4HRS PRN IV NAUSEA/VOMITING; Start 04/13/20 at 13:45 Acetaminophen (Tylenol) 650 mg PRN Q4HRS PRN PO TEMP OVER 100.4F OR MILD PAIN; Start 04/13/20 at 13:45 Al Hydroxide/Mg Hydroxide (Mylanta Plus Xs) 30 ml PRN DAILY PRN PO HEARTBURN / GAS; Start 04/13/20 at 13:45 Clonidine HCl (Catapres) 0.1 mg PRN Q6HRS PRN PO SBP>160 OR DBP>90; Start 04/13/20 at 13:45 Docusate Sodium (Colace) 100 mg PRN BID PRN PO HARD STOOLS; Start 04/13/20 at 13:45 Albuterol Sulfate (Ventolin Neb Soln) 2.5 mg PRN Q4HRS PRN NEB SHORTNESS OF BREATH; Start 04/13/20 at 13:45 Guaifenesin (Robitussin) 200 mg PRN Q4HRS PRN PO COUGH; Start 04/13/20 at 13:45 Lorazepam (Ativan) 0.5 mg PRN Q4HRS PRN PO ANXIETY / AGITATION; Start 04/13/20 at 13:45 Enoxaparin Sodium (Lovenox 40mg Syringe) 40 mg Q24H SQ ; Start 04/13/20 at 14:00 Potassium Chloride (Klor-Con) 20 meq 1X ONCE PO ; Start 04/13/20 at 20:00; Stop 04/13/20 at 20:01 Bupivacaine HCl/ Epinephrine Bitart (Sensorcaine-Epi 0.25%-1:160441 Mpf) 30 ml STK-MED ONCE .ROUTE ; Start 04/13/20 at 16:50; Stop 04/13/20 at 16:51; Status DC Active Scripts Active Reported Alendronate Sodium 70 Mg Tablet 70 Mg PO WEEKLY Losartan Potassium 100 Mg Tablet 100 Mg PO DAILY Atorvastatin Calcium 40 Mg Tablet 40 Mg PO HS Donepezil Hcl 10 Mg Tablet 20 Mg PO HS Metoprolol Succinate ( Xl ) (Metoprolol Succinate) 25 Mg Tab.er.24h 50 Mg PO DAILY Hydrochlorothiazide Tablet (Hydrochlorothiazide) 25 Mg Tablet 25 Mg PO DAILY Allergies Allergies: Coded Allergies: No Known Drug Allergies (Unverified , 04/13/20) ROS General: No: Chills, Night Sweats PSYCHOLOGICAL ROS: No: Disorientation Eyes: No Decreased vision HEENT: No: Heacaches, Sore Throat ALLERGY AND IMMUNOLOGY: No: Hives Respiratory: No: Cough, Pleuritic Pain, Shortness of breath, SOB with excertion Cardiovascular: No Chest Pain Gastrointestinal: No Nausea, No Vomiting, No Diarrhea, No Constipation Musculoskeletal: Yes Joint Pain, Yes Other (she reports 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 There is swelling at the wrist area. The alignment is abnormal. There is tenderness at the wrist. Motion is decreased but there is no evidence of specific neurovascular injury. Capillary refill is normal. Pulse is not assessable due to the tenderness of the wrist. Light touch sensation is intact. Motor function is present for the radial ulnar and median nerves. There is no tenderness at the elbow. The skin is reported intact over the fracture but there is ecchymosis extending to the fingers.) Skin: No breakdown, No significant lesion Neuro: Normal speech, Sensation intact Psych/Mental Status: Mental status NL, Mood NL Vitals VITALS Vital Signs Date Time Temp Pulse Resp B/P (MAP) Pulse Ox O2 Delivery O2 Flow Rate FiO2 04/13/20 17:10 97.7 70 18 139/66 96 Room Air 97.7 Labs Labs Laboratory Tests Test 04/13/20 02:15 04/13/20 07:40 White Blood Count 10.0 x10^3/uL (4.0-11.0) Red Blood Count 4.34 x10^6/uL (3.50-5.40) Hemoglobin 13.1 g/dL (12.0-15.5) Hematocrit 39.0 % (36.0-47.0) Mean Corpuscular Volume 90 fL (79-100) Mean Corpuscular Hemoglobin 30 pg (25-35) Mean Corpuscular Hemoglobin Concent 34 g/dL (31-37) Red Cell Distribution Width 13.9 % (11.5-14.5) Platelet Count 171 x10^3/uL (140-400) Neutrophils (%) (Auto) 78 % (31-73) Lymphocytes (%) (Auto) 10 % (24-48) Monocytes (%) (Auto) 11 % (0-9) Eosinophils (%) (Auto) 1 % (0-3) Basophils (%) (Auto) 1 % (0-3) Neutrophils # (Auto) 7.9 x10^3/uL (1.8-7.7) Lymphocytes # (Auto) 1.0 x10^3/uL (1.0-4.8) Monocytes # (Auto) 1.0 x10^3/uL (0.0-1.1) Eosinophils # (Auto) 0.0 x10^3/uL (0.0-0.7) Basophils # (Auto) 0.1 x10^3/uL (0.0-0.2) Sodium Level 141 mmol/L (136-145) Potassium Level 3.4 mmol/L (3.5-5.1) Chloride Level 102 mmol/L (98-107) Carbon Dioxide Level 28 mmol/L (21-32) Anion Gap 11 (6-14) Blood Urea Nitrogen 28 mg/dL (7-20) Creatinine 1.4 mg/dL (0.6-1.0) Estimated GFR (Cockcroft-Gault) 36.5 BUN/Creatinine Ratio 20 (6-20) Glucose Level 101 mg/dL (70-99) Calcium Level 9.6 mg/dL (8.5-10.1) Total Bilirubin 0.8 mg/dL (0.2-1.0) Aspartate Amino Transf (AST/SGOT) 23 U/L (15-37) Alanine Aminotransferase (ALT/SGPT) 19 U/L (14-59) Alkaline Phosphatase 54 U/L (46-116) Total Protein 6.9 g/dL (6.4-8.2) Albumin 3.7 g/dL (3.4-5.0) Albumin/Globulin Ratio 1.2 (1.0-1.7) Coronavirus (COVID-19)(PCR) Negative (NEGATIVE) Laboratory Tests Test 04/13/20 02:15 04/13/20 07:40 White Blood Count 10.0 x10^3/uL (4.0-11.0) Red Blood Count 4.34 x10^6/uL (3.50-5.40) Hemoglobin 13.1 g/dL (12.0-15.5) Hematocrit 39.0 % (36.0-47.0) Mean Corpuscular Volume 90 fL (79-100) Mean Corpuscular Hemoglobin 30 pg (25-35) Mean Corpuscular Hemoglobin Concent 34 g/dL (31-37) Red Cell Distribution Width 13.9 % (11.5-14.5) Platelet Count 171 x10^3/uL (140-400) Neutrophils (%) (Auto) 78 % (31-73) Lymphocytes (%) (Auto) 10 % (24-48) Monocytes (%) (Auto) 11 % (0-9) Eosinophils (%) (Auto) 1 % (0-3) Basophils (%) (Auto) 1 % (0-3) Neutrophils # (Auto) 7.9 x10^3/uL (1.8-7.7) Lymphocytes # (Auto) 1.0 x10^3/uL (1.0-4.8) Monocytes # (Auto) 1.0 x10^3/uL (0.0-1.1) Eosinophils # (Auto) 0.0 x10^3/uL (0.0-0.7) Basophils # (Auto) 0.1 x10^3/uL (0.0-0.2) Sodium Level 141 mmol/L (136-145) Potassium Level 3.4 mmol/L (3.5-5.1) Chloride Level 102 mmol/L (98-107) Carbon Dioxide Level 28 mmol/L (21-32) Anion Gap 11 (6-14) Blood Urea Nitrogen 28 mg/dL (7-20) Creatinine 1.4 mg/dL (0.6-1.0) Estimated GFR (Cockcroft-Gault) 36.5 BUN/Creatinine Ratio 20 (6-20) Glucose Level 101 mg/dL (70-99) Calcium Level 9.6 mg/dL (8.5-10.1) Total Bilirubin 0.8 mg/dL (0.2-1.0) Aspartate Amino Transf (AST/SGOT) 23 U/L (15-37) Alanine Aminotransferase (ALT/SGPT) 19 U/L (14-59) Alkaline Phosphatase 54 U/L (46-116) Total Protein 6.9 g/dL (6.4-8.2) Albumin 3.7 g/dL (3.4-5.0) Albumin/Globulin Ratio 1.2 (1.0-1.7) Coronavirus (COVID-19)(PCR) Negative (NEGATIVE) Images Images Report reviewed, images independently reviewed. Displaced distal radius fracture. Slight widening of the scapholunate interval. There is severe osteoarthritis of the basal joint of the thumb. There is slight osteoarthritis elsewhere in the wrist joint. [facility] [address] [place] [address] IMAGING REPORT Signed PATIENT: ZIA MELARA ACCOUNT: [id number] : 1940 LOCATION: ER AGE: 79 SEX: F EXAM STATUS: REG ER ORD. PHYSICIAN: STONE MICHAEL Jr., DO REASON: fall PROCEDURE: WRIST 3V LEFT EXAM: LEFT WRIST 3 VIEWS. HISTORY: Fall, left wrist pain. COMPARISON: None. FINDINGS: There is a mildly comminuted transverse fracture of the distal radial metaphysis with 30 degrees dorsal inclination of the distal radial articular surface. No clear intra-articular extension is seen. There is no ulnar styloid fracture. The scapholunate interval is not fully profiled but appears widened at 4 mm. The scapholunate angle is increased. First carpometacarpal osteoarthritis is severe. 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 Soft tissue swelling is noted. IMPRESSION: 1. Dorsally angulated fracture of the distal radius. 2. Findings consistent with scapholunate ligament disruption and dorsal intercalated segmental instability. Electronically signed by: Aren Lo MD (04/13/2020 12:58 AM) [facility] DICTATED and SIGNED BY: MARIANA LO MD DATE: 04/13/20 0058 Assessment/Plan Assessment/Plan This is a 79-year-old with a displaced closed left distal radius fracture. 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 The x-rays do show slight widening of the scapholunate interval. Some wrist arthritis is pre-existing. I spoke to the patient and her family about options for treatment. We discussed the historic treatments for distal radius fractures such as casting or other nonoperative treatment usually with chronic deformity, external fixators, or my current treatments and my recommendation which is open treatment with internal fixation. I believe she will have a much more functional result and better use of the wrist better pain control and better appearance if we do open treatment with internal fixation using a locking plate. She has slight widening of the scapholunate interval which could be acute or chronic, and does not appear severe. I do not recommend Adolph capsulodesis or other dorsal ligament surgery at this time. This could be treated at a later date if it causes problems, and the usual problem it causes is osteoarthritis of the wrist joint such as SLAC wrist or DISI deformity. She already has severe osteoarthritis at the wrist junction with the base of the thumb. I explained my reasoning to the patient and her family and they agreed. I spoke to the patient and her family about the risks benefits and alternatives of open treatment with internal fixation of the distal radius. We discussed the potential risks of infection, neurovascular injury, nonunion or malunion, need for hardware removal, or other potential surgical or anesthetic complications. All of their questions about surgery were answered. They desire to proceed. SHELBIE DAWSON MD Apr 13, 2020 17:31
[2020-04-13] MEDS ORDERED: ePHEDrine PF IN SALINE 50 MG/10 ML SYRINGE. IV ONE ×2 (17:41→18:31)
[2020-04-13] MEDS ORDERED: PROPOFOL 10 MG/ML (20ML) VIAL. IV ONE (17:41)
[2020-04-13] MEDS ORDERED: LIDOCAINE 2% PF 5 ML VIAL. ONE (17:41)
[2020-04-13] MEDS ORDERED: SEVOFLURANE 61 TO 120 MINUTES. IH ONE (18:31)
[2020-04-13] MEDS ORDERED: ONDANSETRON PF 4 MG/2 ML VIAL. ONE (18:37)
[2020-04-13] MEDS ORDERED: DEXAMETHASONE SOD PHOS 4 MG/ML VIAL ONE (18:37)
[2020-04-13] MEDS ORDERED: fentaNYL PF VIAL 100 MCG/2 ML VIAL ONE ×2 (18:45→19:16)
--- NOTE | 2020-04-13 18:53 | PDOC4 ---
Operative Note Operative Note Date of Procedure: April 13, 2020 Preoperative diagnosis: Colles' fracture of left radius, initial encounter for closed fracture S52.532A Postoperative diagnosis: same Procedure: left wrist, open treatment of distal radial extra-articular fracture, with internal fixation CPT 06543 Surgeon: Shelbie Vazquez MD. Teacher Citizenship: Suman JAEGER Anesthesia Type: General EBL: 25 mL Specimens: none Drains: none Complications: none Tourniquet time: 36 minutes Tourniquet pressure: 250 mm Hg Implants: [employer] Distal Radius Plating System INDICATION FOR PROCEDURE: The patient is a 79 year-old who fell and had a displaced left distal radius fracture. I recommended open treatment with internal fixation. We talked about potential risks of surgery such as bleeding, infection, stiffness, need for hardware removal or other potential surgical or anesthetic complications. The patient stated understanding of the risks, benefits and alternatives. Written consent was obtained and she and her family desired to proceed with surgery. PROCEDURE IN DETAIL: The patient was identified in the preoperative holding area. The correct left wrist was marked by me. The patient was taken to the operating room, where a general anesthetic was used. Preoperative antibiotics were given intravenously. A timeout procedure was performed. Tourniquet was used on the upper left arm. The limb was prepared in sterile fashion with ChloraPrep, and sterile drapes were applied. An Esmarch bandage was used to exsanguinate the limb and the tourniquet was inflated. The volar approach of Robi was used distally. Sharp dissection was used and Bovie electrocautery was used as needed for hemostasis. The flexor carpi radialis tendon was retracted ulnarly to protect the median nerve. The brachioradialis was retracted radially to protect the radial artery. My teacher's assistant used small Hohmann retractors on the radial side of the distal fragment and ulnar side of the proximal fragment to help maintain reduction. A Weitlaner retractor was also placed. Subperiosteal dissection of the pronator quadratus was performed after an L incision was made and the muscle was reflected across the fracture site. The fracture was easily identified but markedly displaced, comminuted and unstable. Bone quality was so poor that K wires were removed manually. I performed a reduction first using a [place] elevator to disimpact the fragments, and using longitudinal traction, and volar to palmar compression, the fracture was able to be reduced as confirmed on the image intensifier. The reduction was stabilized with K wires prior to plate application. The small image intensifier device was used to check the reduction, and I used the image intensifier throughout the case and interpreted all of the images myself. I then applied the volar plate, placed a single nonlocking screw in the oval hole, and again checked the position of the plate on the image intensifier. I adjusted the plate as needed for satisfactory alignment and fixation. I placed a nonlocking screw distally to compress the plate to the bone. I placed additional locking screws distally and locking screws proximally and I confirmed the reduction with the image intensifier. Final locking screws were placed in the proximal portion of the plate, and into the shaft. After satisfactory reduction and satisfactory fixation with all the screws, final images were taken. Copious irrigation was used. The tourniquet was released and Bovie electrocautery was used for hemostasis. Bupivacaine 0.25% with epinephrine was injected. The incision was closed by my teacher's assistant with #3-0 Vicryl in the subcutaneous tissues and #3-0 Prolene in the skin. Xeroform and a sterile dressing and a volar splint were applied. Needle and sponge counts were correct. There were no apparent complications. SHELBIE VAZQUEZ MD Apr 13, 2020 18:53
[2020-04-13] MEDS ORDERED: PROCHLORPERAZINE 10 MG/2 ML VIAL. ONE (19:04)
[2020-04-13] MEDS ORDERED: oxyCODONE/APAP 5/325 1 TAB TABLET PO PRN (19:15)
[2020-04-13] MEDS ORDERED: ATORVASTATIN CALCIUM 40 MG TABLET. PO SCH (21:00)
[2020-04-13] MEDS ORDERED: DONEPEZIL HCL 10 MG TABLET. PO SCH (21:00)
[2020-04-13] MEDS: oxyCODONE/APAP 5/325 1 TAB TABLET PO PRN (21:08)
[2020-04-14 03:00] VITALS: BP 129/66
[2020-04-14 04:33] LABS: BASO % 0 % (0-3); EOS % 0 % (0-3); HEMATOCRIT 35.2 % (36.0-47.0); HEMOGLOBIN 11.7 g/dL (12.0-15.5); LYMPH # 0.5 x10^3/uL (1.0-4.8); LYMPH % 7 % (24-48); MEAN CORPUSCULAR HEMOGLOBIN 30 pg (25-35); MEAN CORPUSCULAR HGB CONC 33 g/dL (31-37); MEAN CORPUSCULAR VOLUME 91 fL (79-100); MONO # 0.5 x10^3/uL (0.0-1.1); MONO % 8 % (0-9); NEUT # 5.4 x10^3/uL (1.8-7.7); NEUT % 85 % (31-73); PLATELET COUNT 153 x10^3/uL (140-400); RED BLOOD COUNT 3.89 x10^6/uL (3.50-5.40); WHITE BLOOD COUNT 6.4 x10^3/uL (4.0-11.0)
[2020-04-14 04:55] LABS: CALCIUM 8.6 mg/dL (8.5-10.1); CREATININE 1.4 mg/dL (0.6-1.0); GFR 36.5; POTASSIUM 3.8 mmol/L (3.5-5.1); TOTAL PROTEIN 6.1 g/dL (6.4-8.2)
[2020-04-14 07:00] VITALS: BP 136/76
[2020-04-14] MEDS ORDERED: POTASSIUM CHLORIDE 20 MEQ TABLET.ER. PO SCH (08:00)
[2020-04-14] MEDS: hydroCHLOROthiazide 25 MG TABLET PO SCH (08:58)
[2020-04-14] MEDS: METOPROLOL SUCC 24HR ER 25 MG TAB.ER.24H. PO SCH (08:58)
[2020-04-14] MEDS: LOSARTAN POTASSIUM 50 MG TABLET. PO SCH (08:59)
[2020-04-14] MEDS ORDERED: CHOLECALCIFEROL (VITAMIN D3) 1,000 UNIT TABLET PO SCH (09:00)
[2020-04-14 11:00] VITALS: BP 158/74
--- NOTE | 2020-04-14 11:42 | NUR ---
SS following up with discharge planning. SS reviewed pt chart and discussed with pt RN. Pt is from home and is currently on room air. Pt had surgery on 04/13/2020 and on IV Cefazolin. Pt's daughter visiting from [place] to help pt. SS will continue to follow for discharge planning.
--- NOTE | 2020-04-14 12:30 | PDOC ---
[employer] PROGRESS NOTE Chief Complaint Chief Complaint 1. MECHANICAL FALL 2. Postop day 1 ORIF (dorsally angulated fracture of the distal radius.) 3. Findings consistent with scapholunate ligament disruption and dorsal intercalated segmental instability. 4. Gait instability, high fall risk 5. HYPERTENSION History of Present Illness History of Present Illness 04/14/2020 Patient seen and examined Chart reviewed Discussed with RN Vitals/I&O Vitals/I&O: Vital Signs Date Time Temp Pulse Resp B/P (MAP) Pulse Ox O2 Delivery O2 Flow Rate FiO2 04/14/20 11:00 98.0 75 18 158/74 (102) 96 Room Air 98.0 04/13/20 18:50 8 I & O 04/13/20 04/13/20 04/14/20 15:00 23:00 07:00 Intake Total 0 ml 775 ml Output Total 20 ml Balance 0 ml 755 ml Physical Exam General: Alert, Cooperative Heart: Regular rate Abdomen: Soft Extremities: Normal pulses, Other (The wrist is in a splint which was not removed for the exam. There is swelling at the wrist area. The alignment is abnormal. There is tenderness at the wrist. Motion is decreased but there is no evidence of specific neurovascular injury. Capillary refill is normal. Pulse is not assessable due to the tenderness of the wrist. Light touch sensation is intact. Motor function is present for the radial ulnar and median nerves. There is no tenderness at the elbow. The skin is reported intact over the fracture but there is ecchymosis extending to the fingers.) Skin: No breakdown, No significant lesion Labs Labs: Laboratory Tests Test 04/14/20 03:58 White Blood Count 6.4 x10^3/uL (4.0-11.0) Red Blood Count 3.89 x10^6/uL (3.50-5.40) Hemoglobin 11.7 g/dL (12.0-15.5) Hematocrit 35.2 % (36.0-47.0) Mean Corpuscular Volume 91 fL (79-100) Mean Corpuscular Hemoglobin 30 pg (25-35) Mean Corpuscular Hemoglobin Concent 33 g/dL (31-37) Red Cell Distribution Width 14.0 % (11.5-14.5) Platelet Count 153 x10^3/uL (140-400) Neutrophils (%) (Auto) 85 % (31-73) Lymphocytes (%) (Auto) 7 % (24-48) Monocytes (%) (Auto) 8 % (0-9) Eosinophils (%) (Auto) 0 % (0-3) Basophils (%) (Auto) 0 % (0-3) Neutrophils # (Auto) 5.4 x10^3/uL (1.8-7.7) Lymphocytes # (Auto) 0.5 x10^3/uL (1.0-4.8) Monocytes # (Auto) 0.5 x10^3/uL (0.0-1.1) Eosinophils # (Auto) 0.0 x10^3/uL (0.0-0.7) Basophils # (Auto) 0.0 x10^3/uL (0.0-0.2) Sodium Level 140 mmol/L (136-145) Potassium Level 3.8 mmol/L (3.5-5.1) Chloride Level 105 mmol/L (98-107) Carbon Dioxide Level 26 mmol/L (21-32) Anion Gap 9 (6-14) Blood Urea Nitrogen 17 mg/dL (7-20) Creatinine 1.4 mg/dL (0.6-1.0) Estimated GFR (Cockcroft-Gault) 36.5 BUN/Creatinine Ratio 12 (6-20) Glucose Level 170 mg/dL (70-99) Calcium Level 8.6 mg/dL (8.5-10.1) Total Bilirubin 1.0 mg/dL (0.2-1.0) Aspartate Amino Transf (AST/SGOT) 22 U/L (15-37) Alanine Aminotransferase (ALT/SGPT) 16 U/L (14-59) Alkaline Phosphatase 50 U/L (46-116) Total Protein 6.1 g/dL (6.4-8.2) Albumin 3.0 g/dL (3.4-5.0) Albumin/Globulin Ratio 1.0 (1.0-1.7) 25-Hydroxy Vitamin D Total 23.5 ng/mL (30-100) Assessment and Plan Assessmemt and Plan Problems Medical Problems: (1) Wrist fracture, left Status: Acute 1. MECHANICAL FALL 2. Dorsally angulated fracture of the distal radius. 3. Findings consistent with scapholunate ligament disruption and dorsal intercalated segmental instability. 4. Gait instability, high fall risk 5. HYPERTENSION Plan Wound care PRN pain meds Home meds DVT prophylaxis Full code PT OT Discharge when okay with consult Comment Review of Relevant I have reviewed the following items lindy (where applicable) has been applied. Medications: Current Medications Medications (Trade) Dose Ordered Sig/Sophia Route PRN Reason Start Time Stop Time Status Last Admin Dose Admin Hydromorphone HCl (Dilaudid) 0.5 mg PRN Q3HRS PRN IV PAIN 04/13/20 13:00 04/13/20 16:03 Atorvastatin Calcium (Lipitor) 40 mg HS PO 04/13/20 21:00 04/13/20 20:59 Donepezil HCl (Aricept) 20 mg HS PO 04/13/20 21:00 04/13/20 21:00 Hydrochlorothiazide (Hydrodiuril) 25 mg DAILY PO 04/13/20 14:00 04/14/20 08:58 Metoprolol Succinate (Toprol Xl) 50 mg DAILY PO 04/13/20 14:00 04/14/20 08:58 Losartan Potassium (Cozaar) 100 mg DAILY PO 04/13/20 14:00 04/14/20 08:59 Sodium Chloride 1,000 ml @ 80 mls/hr [id number] IV 04/13/20 13:33 04/13/20 22:45 Potassium Chloride (Klor-Con) 20 meq 1X ONCE PO 04/13/20 20:00 04/13/20 20:01 DC 04/13/20 20:59 Bupivacaine HCl/ Epinephrine Bitart (Sensorcaine-Epi 0.25%-1:866517 Mpf) 30 ml STK-MED ONCE .ROUTE 04/13/20 16:50 04/13/20 16:51 DC 04/13/20 17:40 Cefazolin Sodium/ Dextrose 50 ml @ 100 mls/hr Q6HRS IV 04/14/20 00:00 04/14/20 12:29 04/14/20 05:54 Oxycodone/ Acetaminophen (Percocet 5/325) 1 tab PRN Q4HRS PRN PO MODERATE PAIN 04/13/20 19:15 04/13/20 21:08 Vitamin D (Vitamin D3) 1,000 unit DAILY PO 04/14/20 09:00 04/14/20 09:02 Justicifation of Admission Dx: Justifications for Admission: Justification of Admission Dx: Yes KEO WYNN III DO Apr 14, 2020 12:30
[2020-04-14] MEDS ORDERED: OXYC-325 PO (14:02)
[2020-04-14] MEDS: oxyCODONE/APAP 5/325 1 TAB TABLET PO PRN (14:30)
[2020-04-14 15:00] VITALS: BP 149/70
--- NOTE | 2020-04-14 20:36 | DS ---
DATE OF DISCHARGE: 04/14/2020 ADMISSION DIAGNOSIS: Fall with left wrist fracture. DISCHARGE DIAGNOSIS: Postop open reduction and internal fixation of distal radius fracture. HOSPITAL COURSE: The patient is a pleasant elderly female who tripped on some carpet and fell at home. She suffered a wrist fracture. We admitted her. We consulted Dr. Vazquez, he took her for ORIF. Postoperatively, she is doing great. Today, I saw her, examined her. Heart tones are normal. Lungs are clear. We plan to discharge. DISPOSITION: Home. ACTIVITY: As tolerated. DIET: Low sodium. MEDICATIONS: Please see the MRAD. TOTAL TIME: 32 minutes. KEO WYNN DO DR: PIETRO/maximo JOB#: [id number] / [id number]
[2020-04-20] MEDS ORDERED: NON FORMULARY ITEM (Alendronate Sodium 70 MG) PO SCH (09:00)
== END 2020-04-14 16:00 | disposition home or self-care (01) | DRG 512 ==
LOC: ER 00:35 → 4 NORTH 02:43 → OBSVTOIN 13:36
PROVIDERS: ADMIT Family Medicine; ATTEND Family Medicine
PROC: 0PSJ04Z Reposition Left Radius with Internal Fixation Device, Open Approach (ICD-10-PCS; principal; 2020-04-13 16:00)
DX: S52.532A Colles' fracture of left radius, initial encounter for closed fracture (principal); S52.552A Other extraarticular fracture of lower end of left radius, initial encounter for closed fracture; E78.00 Pure hypercholesterolemia, unspecified; I10 Essential (primary) hypertension; Z20.828 Contact with and (suspected) exposure to other viral communicable diseases; M19.032 Primary osteoarthritis, left wrist; Z60.2 Problems related to living alone; W01.0XXA Fall on same level from slipping, tripping and stumbling without subsequent striking against object, initial encounter; Z82.49 Family history of ischemic heart disease and other diseases of the circulatory system; Z91.81 History of falling; Y93.89 Activity, other specified; Y92.89 Other specified places as the place of occurrence of the external cause; Y99.8 Other external cause status
CPT/HCPCS: 36415; 73110; 80053; 82306; 85025; 93005; A7015; C1769; G0378; G0379; J0360; J0696; J0780; J1100; J1170; J2405; J2704; J3010; J3490; J7030; U0003; 97110-GP; 97535-GO; A4565; C1713

== ENCOUNTER → 2020-10-04 | Outpatient (CLI) | payer MEDICARE ==
[~2020-10-04] MED LIST: ALEN70TA60 PO; ATOR40TA59 PO; DONE10TA7 PO; HYDR-2145 PO; LOSA100T14 PO; METO-239 PO; OXYC-325 PO
--- NOTE | 2020-10-04 08:31 | RAD ---
Examination: SCAN OF ABDOMINAL AORTA History: ABDOMINAL AORTIC ANEURYSM / Comparison/Correlation: September 24, 2017, September 09, 2018, September 12, 2019 Limited abdominal sonogram Findings: Ultrasound examination of the abdominal aorta was performed. Proximal abdominal aortic diameter is 2.6 cm. Mid abdominal aortic diameter is 2.2 cm distal abdominal aortic diameter 3.7 cm is present. Normal flow and spectral waveform are seen. Mild atheromatous involvement of the abdominal aorta is evident. Right common iliac artery systolic velocity of 151 cm/s and left common iliac a systolic velocity of 108 cm/s identified. Impression: Distal abdominal aortic aneurysm. No significant change upon comparison with 09/09/2018. Electronically signed by: Luis Manuel Hurley MD (10/04/2020 8:28 AM) [id number]
--- NOTE | 2020-10-04 13:01 | CARD ---
MR#: [id number] Date of Study: 10/04/2020 Ordering Physician: MOHIT WASHINGTON, Referring Physician: MOHIT WASHINGTON, Tech: Inés Avelar APPROVED REPORT EXAM: Two-dimensional and M-mode echocardiogram with Doppler and color Doppler. Other Information Quality : AverageHR: 59bpm INDICATION Abdominal Aortic Aneurysm RISK FACTORS Hypertension Hyperlipidemia Diabetes 2D DIMENSIONS Left Atrium(2D)2.8 (1.6-4.0cm)IVSd0.8 (0.7-1.1cm) Aortic Root(2D)3.6 (2.0-3.7cm)LVDd3.9 (3.9-5.9cm) LVOT Diameter2.0 (1.8-2.4cm)PWd1.2 (0.7-1.1cm) LVDs2.5 (2.5-4.0cm)LVEF(%)53.0 (>50%) Aortic Valve AoV Peak Isai.115.2cm/sAoV VTI30.8cm AO Peak GR.5.3mmHgLVOT Peak Isai.117.6cm/s LVOT VTI 31.75cmAO Mean GR.3mmHg BO (VMAX)2.31pq4MJR (VTI)3.28cm2 Mitral Valve MV E Saktecfm902.8cm/sMV DECEL [id number] MV A Yyucdvbw070.5cm/sMV JRB02dg E/A Ratio0.9MVA (PHT)2.70cm2 TDI E/Lateral E'23.7E/Medial E'16.9 Pulmonary Valve PV Peak Yzbdyfzy761.1cm/sPV Peak Grad.5mmHg Tricuspid Valve TR P. Jfvcclsz889ta/sTR Peak Gr.42mmHg Pulmonary Vein S1 Tdlrcwuh37.7cm/sD2 Blhffoju76.2cm/s PVa [id number] LEFT VENTRICLE The left ventricle is normal size. There is normal left ventricular wall thickness. The left ventricu lar systolic function is normal. The Ejection Fraction is 55-60%. There is normal LV segmental wall m otion. Transmitral Doppler flow pattern is Grade I-abnormal relaxation pattern. RIGHT VENTRICLE The right ventricle is normal size. There is normal right ventricular wall thickness. The right ventr icular systolic function is normal. ATRIA The left atrium size is normal. The right atrium size is normal. The interatrial septum is intact wit h no evidence for an atrial septal defect or patent foramen ovale as noted on 2-D or Doppler imaging. AORTIC VALVE The aortic valve is thickened but opens well. Doppler and Color Flow revealed no significant aortic r egurgitation. Calculated aortic valve area is 3.18 cm2 with maximum pressure gradient of 7 mmHg and m jennifer pressure gradient of 4 mmHg. There is no significant aortic valvular stenosis. MITRAL VALVE The mitral valve is normal in structure and function. Mitral annular calcification is moderate. There is no evidence of mitral valve prolapse. There is no mitral valve stenosis. Doppler and Color-flow r evealed trace mitral regurgitation. TRICUSPID VALVE The tricuspid valve is normal in structure and function. Doppler and Color Flow revealed mild tricusp id regurgitation with an estimated PAP of 53 mmHg. There is moderate pulmonary hypertension. There is no tricuspid valve stenosis. PULMONIC VALVE The pulmonic valve is not well visualized. Doppler and Color Flow revealed mild pulmonic valvular reg urgitation. GREAT VESSELS The aortic root is normal in size. The ascending aorta is Mildly dilated. The IVC is dilated. PERICARDIAL EFFUSION There is no evidence of significant pericardial effusion. Critical Notification Critical Value: No <Conclusion> The left ventricular systolic function is normal. The Ejection Fraction is 55-60%. There is normal LV segmental wall motion. Transmitral Doppler flow pattern is Grade I-abnormal relaxation pattern. Trace mitral regurgitation. Mild tricuspid regurgitation with an estimated PAP of 53 mmHg. There is no evidence of significant pericardial effusion. Signed by : Mohit Washington, Electronically Approved : 10/04/2020 13:01:28
== END ==
LOC: US 08:17
PROVIDERS: ATTEND Internal Medicine Cardiovascular Disease
DX: I71.4 Abdominal aortic aneurysm, without rupture (principal); I10 Essential (primary) hypertension
CPT/HCPCS: 76770; 93306